=== PATIENT | female | born 1990 | race Hispanic/Latino ===

== ENCOUNTER 2020-09-03 09:30 | Emergency (ER) | payer BC ==
[2020-09-03 09:58] LABS: #Eosinphils 0.3 thou/uL (0.0-0.7); #Lymphocytes 3.4 thou/uL (1.20-3.40); #Monocytes 0.6 thou/uL (0.11-0.59); #Neutrophils 6.8 thou/uL (1.40-6.50); %Basophils 0.4 % (0.0-1.0); %Eosinophils 2.3 % (0.0-10.0); %Lymphocytes 30.5 % (21.0-51.0); %Monocytes 5.8 % (0.0-10.0); %Neutrophils 61.1 % (42.0-75.0); Hemoglobin 14.7 g/dL (12.0-16.0); Mean Corpuscular HGB CONC 31.9 g/dL (32.0-36.0); Mean Corpuscular Hemoglobin 28.4 pg (27.0-31.0); Mean Corpuscular Volume 88.9 fL (78.0-98.0); Mean Platelet Volume 8.1 fL (7.4-10.4); Platelet Count 429 thou/uL (130-400); RBC Distribution Width 12.3 % (11.5-14.5); Red Blood Cell (RBC) Count 5.17 mill/uL (4.20-5.40); White Blood Cell (WBC) Count 11.1 thou/uL (4.8-10.8)
[2020-09-03 10:37] LABS: CK (CPK) 100 U/L (29-168); Lipase 51 U/L (8-78)
[2020-09-03 10:56] LABS: ALT (SGPT) 16 U/L (8-55); AST (SGOT) 21 U/L (5-34); Albumin 4.5 g/dL (3.5-5.0); Alkaline Phosphatase 89 U/L (40-110); Anion Gap 18 mmol/L (10-20); BUN (Urea Nitrogen) 12 mg/dL (7.0-18.7); Bilirubin, Total 0.3 mg/dL (0.2-1.2); Calc. Creatinine Clearance 0 mL/min (70-130); Calcium 9.6 mg/dL (7.8-10.44); Carbon Dioxide 19 mmol/L (22-29); Chloride 105 mmol/L (98-107); Globulin 3.5 g/dL (2.4-3.5); Glucose 96 mg/dL (70-105); Sodium 137 mmol/L (136-145)
[2020-09-03] MEDS ORDERED: Aspirin Chewable 81 MG TAB ONE (12:09)
[2020-09-03] MEDS ORDERED: Ibuprofen 200 MG TAB ONE (12:09)
== END 2020-09-03 12:57 | disposition home or self-care (01) ==
LOC: ERS 09:30
DX: R07.89 Other chest pain (principal); R06.02 Shortness of breath; R55 Syncope and collapse
CPT/HCPCS: 36415; 71045; 80053; 82550; 83690; 83880; 84484; 85025; 85379; 93005

== ENCOUNTER 2021-01-03 10:42 | Emergency (ER) | payer BC ==
[2021-01-03 11:55] LABS: #Basophils 0.1 thou/uL (0.0-0.2); #Eosinphils 0.2 thou/uL (0.0-0.7); #Monocytes 0.5 thou/uL (0.11-0.59); #Neutrophils 5.7 thou/uL (1.40-6.50); %Basophils 0.6 % (0.0-1.0); %Eosinophils 1.8 % (0.0-10.0); %Lymphocytes 31.4 % (21.0-51.0); %Monocytes 5.6 % (0.0-10.0); %Neutrophils 60.5 % (42.0-75.0); Hemoglobin 13.1 g/dL (12.0-16.0); Mean Corpuscular HGB CONC 32.9 g/dL (32.0-36.0); Mean Corpuscular Hemoglobin 29.4 pg (27.0-31.0); Mean Corpuscular Volume 89.2 fL (78.0-98.0); Mean Platelet Volume 8.7 fL (7.4-10.4); Platelet Count 369 thou/uL (130-400); RBC Distribution Width 12.7 % (11.5-14.5); Red Blood Cell (RBC) Count 4.46 mill/uL (4.20-5.40); White Blood Cell (WBC) Count 9.4 thou/uL (4.8-10.8)
[2021-01-03 12:18] LABS: Anion Gap 14 mmol/L (10-20); BUN (Urea Nitrogen) 18 mg/dL (7.0-18.7); Calc. Creatinine Clearance 0 mL/min (70-130); Calcium 9.3 mg/dL (7.8-10.44); Carbon Dioxide 24 mmol/L (22-29); Chloride 108 mmol/L (98-107); Glucose 88 mg/dL (70-105); Potassium 4.5 mmol/L (3.5-5.1); Sodium 141 mmol/L (136-145)
== END 2021-01-03 13:05 | disposition home or self-care (01) ==
LOC: ERS 10:42
DX: K92.1 Melena (principal); I10 Essential (primary) hypertension; E11.9 Type 2 diabetes mellitus without complications
CPT/HCPCS: 36415; 80048; 85025; 99284

== ENCOUNTER 2022-10-05 13:45 | Outpatient (CLI) | payer BC | END 2022-10-05 13:46 | disposition home or self-care (01) | LOC: DTY/OP 13:45 | PROVIDERS: ATTEND Surgery | DX: E66.01 Morbid (severe) obesity due to excess calories (principal) | CPT/HCPCS: 97802 ==

== ENCOUNTER 2023-02-01 08:17 | Outpatient (CLI) | payer BC ==
[2023-02-01 09:03] LABS: #Eosinphils 0.1 10x3/uL (0.0-0.5); #Monocytes 0.5 10x3/uL (0.0-1.1); #Neutrophils 6.8 10x3/uL (1.5-8.4); %Basophils 0.4 % (0.0-2.0); %Eosinophils 1.3 % (0.0-6.0); %Lymphocytes 25.4 % (18.0-47.0); %Monocytes 4.9 % (0.0-10.0); %Neutrophils 67.5 % (40.0-75.0); Hematocrit 41.6 % (34.9-44.5); Hemoglobin 13.5 g/dL (12.0-15.5); Mean Corpuscular HGB CONC 32.5 g/dL (32.0-36.0); Mean Corpuscular Hemoglobin 27.4 pg (27.0-33.0); Mean Corpuscular Volume 84.4 fl (81.6-98.3); Mean Platelet Volume 10.8 fl (7.4-10.4); Platelet Count 415 10x3/uL (150-450); RBC Distribution Width 13.5 % (11.5-14.5); Red Blood Cell (RBC) Count 4.93 10x6/uL (3.90-5.03); White Blood Cell (WBC) Count 10.1 10x3/uL (3.5-10.5)
[2023-02-01 09:37] LABS: BHCG - Serum Negative (NEGATIVE); Pregs Control Background? CLEAR/WHITE (CLR/WHITE); Pregs Control Bar Appear? YES (CONTROL BAR)
[2023-02-01 09:42] LABS: Anion Gap 15 mmol/L (10-20); BUN (Urea Nitrogen) 17 mg/dL (7.0-18.7); Calc. Creatinine Clearance 0 mL/min (70-130); Calcium 9.6 mg/dL (7.8-10.44); Carbon Dioxide 20 mmol/L (22-29); Chloride 106 mmol/L (98-107); Estimated GFR 106; Glucose 114 mg/dL (70-105); Potassium 4.4 mmol/L (3.5-5.1); Sodium 137 mmol/L (136-145)
== END 2023-02-01 08:18 | disposition home or self-care (01) ==
LOC: LABBT 08:17
PROVIDERS: ATTEND Surgery
DX: Z01.812 Encounter for preprocedural laboratory examination (principal); E66.01 Morbid (severe) obesity due to excess calories
CPT/HCPCS: 80048; 84703; 85025

== ENCOUNTER 2023-02-01 08:30 | Inpatient (IN) | payer BC ==
[2023-02-01 08:39] VITALS: BMI 44.8
[2023-02-10] MEDS ORDERED: CEFAZOLIN 2 GM VIAL ONE (06:32)
[2023-02-10] MEDS ORDERED: Lidocaine 1% MPF 2 ML VIAL ONE (06:32)
[2023-02-10] MEDS ORDERED: Sodium Chloride 0.9% 100 ML ONE (06:33)
[2023-02-10] MEDS ORDERED: Bupivacaine 0.25% HCL 30 ML VIAL ONE (06:38)
[2023-02-10] MEDS ORDERED: EPINEPHrine 1 MG/ML VIAL ONE (06:38)
[2023-02-10] MEDS ORDERED: Lidocaine 1% PF 5 ML VIAL ONE ×2 (06:54→07:32)
[2023-02-10] MEDS ORDERED: Rocuronium Bromide 10 MG/ML (10ML VIAL) ONE ×2 (06:54→07:32)
[2023-02-10] MEDS ORDERED: PROPOFOL 20 ML ONE (06:54)
[2023-02-10] MEDS ORDERED: fentaNYL PF 100 MCG/2 ML SYRINGE ONE (06:54)
[2023-02-10] MEDS ORDERED: Midazolam HCl 2 mg/2 ml Vial ONE (07:21)
[2023-02-10] MEDS ORDERED: Dexamethasone 20 MG/5 ML VIAL ONE ×2 (07:32→07:45)
[2023-02-10] MEDS ORDERED: PROPOFOL 200 MG/20 ML VIAL ONE (07:32)
[2023-02-10] MEDS ORDERED: Ondansetron PF 4 MG/2 ML Vial ONE ×3 (07:32→09:53)
[2023-02-10] MEDS ORDERED: fentaNYL 50 mcg/mL 1 mL Vial ONE ×2 (07:50→08:39)
[2023-02-10] MEDS ORDERED: SUGAMMADEX SODIUM 200 MG/2 ML VIAL ONE (08:24)
[2023-02-10] MEDS ORDERED: Promethazine HCl 25 MG/ML VIAL IM PRN ×3 (08:36→10:14)
[2023-02-10] MEDS ORDERED: Ondansetron HCl/PF 4 MG/2 ML Vial IVP PRN (08:36)
[2023-02-10] MEDS ORDERED: diphenhydrAMINE 50 MG/ML VIAL IM PRN (08:36)
[2023-02-10] MEDS ORDERED: Ondansetron PF 4 MG/2 ML Vial IVP PRN ×2 (08:36→10:14)
[2023-02-10] MEDS ORDERED: diphenhydrAMINE 50 MG/ML VIAL IVP PRN ×2 (08:36→10:14)
[2023-02-10] MEDS ORDERED: Naloxone HCl 0.4 mg/ml Vial IV PRN (08:36)
[2023-02-10] MEDS ORDERED: diphenhydrAMINE 25 MG CAP PO PRN (08:36)
[2023-02-10] MEDS ORDERED: FENTANYL 500 MCG/10 ML VIAL 2,000 MCG in Sodium Chloride 0.9% 60 ML IV PRN (08:36)
[2023-02-10] MEDS ORDERED: Communication Order-Pharmacy FS SCH (08:45)
[2023-02-10] MEDS ORDERED: Glucagon 1 MG/ML KIT IM PRN (10:14)
[2023-02-10] MEDS ORDERED: hydrALAZINE 20 MG/ML VIAL SLOW IVP PRN (10:14)
[2023-02-10] MEDS ORDERED: Dextrose 5% in Water 1,000 ML IV PRN (10:14)
[2023-02-10] MEDS ORDERED: Hydrocodone-Acetamin 15 ML UDCUP PO PRN (10:14)
[2023-02-10] MEDS ORDERED: Ipratropium/Albuterol 3 ML NEB NEB PRN (10:14)
[2023-02-10] MEDS ORDERED: Dextrose 50% Abboject 50 ML SYRINGE SLOW IVP PRN (10:14)
[2023-02-10] MEDS: D5 1/2 NS w/20 mEq KCL 1,000 ML IV SCH ×2 (11:50→17:22)
[2023-02-10] MEDS: Pantoprazole 40 MG VIAL IVP SCH (12:49)
[2023-02-11] MEDS: D5 1/2 NS w/20 mEq KCL 1,000 ML IV SCH (05:01)
[2023-02-11 05:28] LABS: #Monocytes 1.2 thou/uL (0.11-0.59); #Neutrophils 11.7 thou/uL (1.40-6.50); %Basophils 0.2 % (0.0-1.0); %Eosinophils 0.1 % (0.0-10.0); %Lymphocytes 17.3 % (21.0-51.0); %Monocytes 7.7 % (0.0-10.0); %Neutrophils 74.4 % (42.0-75.0); Hematocrit 38.7 % (36.0-47.0); Hemoglobin 12.2 g/dL (12.0-16.0); Mean Corpuscular HGB CONC 31.5 g/dL (32.0-36.0); Mean Corpuscular Hemoglobin 27.1 pg (27.0-31.0); Mean Platelet Volume 12.1 fL (7.4-10.4); Platelet Count 370 10x3/uL (130-400); RBC Distribution Width 13.6 % (11.5-14.5); White Blood Cell (WBC) Count 15.7 10x3/uL (4.8-10.8)
[2023-02-11 05:50] LABS: Anion Gap 16 mmol/L (10-20); BUN (Urea Nitrogen) 8 mg/dL (7.0-18.7); Calc. Creatinine Clearance 186 mL/min (70-130); Calcium 9.2 mg/dL (7.8-10.44); Carbon Dioxide 22 mmol/L (22-29); Chloride 107 mmol/L (98-107); Estimated GFR 102; Glucose 113 mg/dL (70-105); Potassium 4.5 mmol/L (3.5-5.1); Sodium 140 mmol/L (136-145)
[2023-02-11 09:30] VITALS: BP 123/81; TEMP 98
[2023-02-11] MEDS: Pantoprazole 40 MG VIAL IVP SCH (09:55)
== END 2023-02-11 12:05 | disposition home or self-care (01) | DRG 621 ==
LOC: SURG A 02-10 06:14
PROVIDERS: ADMIT Surgery; ATTEND Surgery
PROC: 0DB64Z3 Excision of Stomach, Percutaneous Endoscopic Approach, Vertical (ICD-10-PCS; principal; 2023-02-10)
PROC: 8E0W4CZ Robotic Assisted Procedure of Trunk Region, Percutaneous Endoscopic Approach (ICD-10-PCS; 2023-02-10)
DX: E66.01 Morbid (severe) obesity due to excess calories (principal); Z68.42 Body mass index [BMI] 45.0-49.9, adult
CPT/HCPCS: 36415; 80048; 85025; 88307; 94760; C9113; J0171; J1100; J1650; J2250; J2405; J2704; J3010; J3480; J3490; S0020